=== PATIENT | female | born 1980 | race Two or more races ===

== ENCOUNTER 2022-12-29 12:16 | Emergency (ER) | payer MEDICAID, OTHER ==
[~2022-12-29] VITALS: Ht 175.3 cm; Wt 118.2 kg
[2022-12-29 13:36] VITALS: BP 150/102; PULSE 75; RESP 16; TEMP 98; O2SAT 98
[2022-12-29 14:32] LABS: Urine Bacteria NONE SEEN /hpf (None Seen); Urine Blood Negative /uL (Negative); Urine Clarity Clear (Clear); Urine Color Yellow (Yellow); Urine Mucus FEW (None Seen); Urine Protein, UAD TRACE (Negative); Urine Specific Gravity 1.031 (1.001-1.035); Urine Urobilinogen Normal (Negative); Urine WBC 1 /hpf (0 - 5); Urine pH 5.5 (5.0-8.0)
[2022-12-29 14:34] LABS: Alanine Aminotransferase 19 U/L (7-40); Albumin 4.3 g/dL (3.2-4.8); Alkaline Phosphatase 78 U/L (46-116); Anion Gap 7.9 (5-15); Aspartate Aminotransferase 13 U/L (13-40); BUN/Creatinine Ratio 15.4 (10.0-20.0); Bilirubin, Total 0.4 mg/dL (0.2-1.0); Blood Urea Nitrogen 10 mg/dL (9-23); Carbon Dioxide 24.1 mmol/L (20-30); Chloride 106 mmol/L (98-107); Glucose 110 mg/dL (74-106); Potassium 3.9 mmol/L (3.5-5.1); Sodium 138 mmol/L (136-145); Total Protein 7.5 g/dL (5.7-8.2)
[2022-12-29] MEDS ORDERED: TRIA37.587 PO (14:51)
== END 2022-12-29 14:52 | disposition home or self-care (01) ==
LOC: ER 12:16
DX: I10 Essential (primary) hypertension (principal); G43.909 Migraine, unspecified, not intractable, without status migrainosus; Z79.899 Other long term (current) drug therapy
CPT/HCPCS: 36415; 80053; 81001; 81025

== ENCOUNTER 2023-01-13 14:45 | Emergency (ER) | payer MEDICAID ==
[~2023-01-13] VITALS: Ht 175.3 cm; Wt 102.3 kg
[~2023-01-13 14:45] MED LIST: TRIA37.587 PO
[2023-01-13 15:43] LABS: Basophils # (auto) 0.1 10 ^3/uL (0-0.2); Basophils % (auto) 0.6 % (0.0-2.0); Eosinophils # (auto) 0.1 10 ^3/uL (0-0.8); Hematocrit 37.9 % (36.0-46.0); Hemoglobin 12.8 g/dL (12.2-16.2); Lymphocytes % (auto) 31.7 % (10.0-50.0); Mean Corpuscular Hemoglobin 25.6 pg (28.0-32.0); Mean Corpuscular Hgb Conc. 33.9 g/dL (32.0-36.0); Mean Corpuscular Volume 75.6 fL (80.0-100.0); Monocytes # (auto) 0.6 10 ^3/uL (0-1.3); Neutrophils # (auto) 5.7 10 ^3/uL (1.6-8.6); Neutrophils % (auto) 60.7 % (37.0-80.0); Nucleated Red Blood Cells % 0.1 %; Red Blood Cells 5.01 10^6/uL (4.0-5.20); Red Cell Distribution Width 14.3 % (11.8-14.3); White Blood Cell 9.4 10^3/uL (4.4-10.8)
[2023-01-13 16:03] LABS: Alanine Aminotransferase 28 U/L (7-40); Albumin 4.6 g/dL (3.2-4.8); Alkaline Phosphatase 86 U/L (46-116); Anion Gap 8 (5-15); Aspartate Aminotransferase 17 U/L (13-40); BUN/Creatinine Ratio 18.3 (10.0-20.0); Blood Urea Nitrogen 13 mg/dL (9-23); Calcium 9.5 mg/dL (8.7-10.4); Carbon Dioxide 25 mmol/L (20-30); Chloride 104 mmol/L (98-107); Glucose 107 mg/dL (74-106); Potassium 4.3 mmol/L (3.5-5.1); Sodium 137 mmol/L (136-145)
[2023-01-13 16:04] LABS: Bilirubin, Total 0.5 mg/dL (0.2-1.0)
[2023-01-13] MEDS ORDERED: PROCHLORPERAZINE EDISYLATE 5 MG/ML 2ML VIAL IM ONE (17:00)
[2023-01-13 17:17] VITALS: BP 124/71; PULSE 67; RESP 18; TEMP 97.6; O2SAT 99
[2023-01-13 18:13] LABS: Urine Bacteria FEW /hpf (None Seen); Urine Blood Negative /uL (Negative); Urine Clarity HAZY (Clear); Urine Color Yellow (Yellow); Urine Mucus MODERATE (None Seen); Urine Protein, UAD TRACE (Negative); Urine Specific Gravity 1.027 (1.001-1.035); Urine Urobilinogen Normal (Negative); Urine WBC 2 /hpf (0 - 5); Urine pH 5.5 (5.0-8.0)
== END 2023-01-13 17:56 | disposition home or self-care (01) ==
LOC: ER 14:45
DX: G43.909 Migraine, unspecified, not intractable, without status migrainosus (principal); R10.2 Pelvic and perineal pain; R94.7 Abnormal results of other endocrine function studies; Z79.899 Other long term (current) drug therapy; Z88.8 Allergy status to other drugs, medicaments and biological substances
CPT/HCPCS: 36415; 70450; 80053; 81001; 84146; 84702; 85025; 96372; 99285; J0780

== ENCOUNTER 2023-06-01 09:28 | Emergency (ER) | payer MEDICAID ==
[~2023-06-01] VITALS: Ht 175.3 cm; Wt 113.1 kg
[2023-06-01 11:03] VITALS: BP 136/92; PULSE 72; RESP 16; TEMP 97.5; O2SAT 98
[2023-06-01] MEDS ORDERED: IBUP-1456 PO (11:43)
== END 2023-06-01 12:13 | disposition home or self-care (01) ==
LOC: ER 09:28
DX: M77.8 Other enthesopathies, not elsewhere classified (principal); I10 Essential (primary) hypertension; Z79.1 Long term (current) use of non-steroidal anti-inflammatories (NSAID); Z79.899 Other long term (current) drug therapy; Z88.8 Allergy status to other drugs, medicaments and biological substances
CPT/HCPCS: 73080

== ENCOUNTER 2023-10-02 10:37 | Emergency (ER) | payer MEDICAID ==
[~2023-10-02] VITALS: Ht 175.3 cm; Wt 113.3 kg
[~2023-10-02 10:37] MED LIST changes: +IBUP-1456 PO
[2023-10-02 13:37] VITALS: BP 103/70
[2023-10-02 14:19] VITALS: PULSE 97; RESP 16; O2SAT 98
[2023-10-02] MEDS ORDERED: NAP500T PO (14:41)
[2023-10-02] MEDS: methylPREDNISolone SOD SUCC 125 MG/2 ML VL IM ONE (14:45)
[2023-10-02] MEDS: KETOROLAC TROMETH 60MG/2ML VIAL IM ONE (14:46)
== END 2023-10-02 15:00 | disposition home or self-care (01) ==
LOC: ER 10:37
DX: M54.42 Lumbago with sciatica, left side (principal); I10 Essential (primary) hypertension; Z88.6 Allergy status to analgesic agent
CPT/HCPCS: 96372; 99284; J1885; J2919